=== PATIENT | female | born 1965 | race Caucasian/White ===

== ENCOUNTER 2021-06-01 09:33 | Day surgery (SDC) | payer MEDICAID, MEDICARE ==
[~2021-06-01 09:33] MED LIST: Lactated Ringers 1,000 ML IV SCH
[2021-06-01] MEDS ORDERED: Propofol 200 MG/20 ML SDV ONE ×3 (10:21→11:01)
[2021-06-01] MEDS ORDERED: fentaNYL 100 MCG/2 ML SDV ONE (10:21)
== END 2021-06-01 12:35 | disposition home or self-care (01) ==
LOC: VM.SDS 09:33
PROVIDERS: ATTEND Surgery
DX: Z12.11 Encounter for screening for malignant neoplasm of colon (principal); D12.0 Benign neoplasm of cecum; G47.33 Obstructive sleep apnea (adult) (pediatric); I10 Essential (primary) hypertension; E55.9 Vitamin D deficiency, unspecified; E53.8 Deficiency of other specified B group vitamins; F32.A Depression, unspecified; D50.9 Iron deficiency anemia, unspecified; J44.9 Chronic obstructive pulmonary disease, unspecified; E66.09 Other obesity due to excess calories; F12.20 Cannabis dependence, uncomplicated; F11.20 Opioid dependence, uncomplicated; F17.210 Nicotine dependence, cigarettes, uncomplicated; R73.9 Hyperglycemia, unspecified; Z68.38 Body mass index [BMI] 38.0-38.9, adult; Z80.0 Family history of malignant neoplasm of digestive organs; Z98.890 Other specified postprocedural states; Z79.899 Other long term (current) drug therapy; Z88.8 Allergy status to other drugs, medicaments and biological substances; Z87.891 Personal history of nicotine dependence
CPT/HCPCS: 00812; 88305; J2704; J3010; J7120

== ENCOUNTER 2022-10-31 10:16 | Emergency (ER) | payer MEDICARE, OTHER, MEDICAID ==
[2022-10-31] MEDS ORDERED: Ketorolac 30 MG/ML SDV IM ONE (10:52)
[2022-10-31] MEDS ORDERED: Take Home: Acetaminophen/oxyCODONE 325-5 MG, 5 Tab Pack PO ONE (11:59)
[2022-10-31] MEDS ORDERED: Acetaminophen/HYDROcodone 325-10 MG Tab PO ONE (11:59)
== END 2022-10-31 12:27 | disposition home or self-care (01) ==
LOC: VM.ED 10:16
DX: M54.6 Pain in thoracic spine (principal); M54.50 Low back pain, unspecified; I10 Essential (primary) hypertension; E66.9 Obesity, unspecified; Z68.41 Body mass index [BMI] 40.0-44.9, adult; Z88.5 Allergy status to narcotic agent; Z88.1 Allergy status to other antibiotic agents; Z79.899 Other long term (current) drug therapy
CPT/HCPCS: 96372; 99283; A9270-GY; J1885; J3360